=== PATIENT | female | born 1955 | race Caucasian/White ===

== ENCOUNTER → 2017-05-29 | Outpatient (CLI) | payer OTHER ==
[~2017-05-29] MED LIST: BENTYL20 MG PO; DILANTIN PO; FLEXERIL10 MG PO; HYDROCODON-ACE1 EAC7 PO; KEPPRA750 M1 PO; KEPPRA750 MG PO; LISINOPRIL10 MG PO; MIRALAX17 GM DOB; NAPROSYN500 MG PO; NEXIUM PO; ORUDIS75 M1 PO; PANTOPRAZOLE SO40 MG PO; PHENERGAN25 MG PO
--- NOTE | ~2017-05-29 | NM22 ---
[facility] A Service of [facility] & [facility] RADIOLOGY TEXT RESULTS PATIENT: ROBBY CORNEJO LOCATION: [facility] : 53 UNIT #: [id number] AGE: [address]: Thai Patel MD SEX: F ORDER DR: [id number] [facility] [address] [place], [place] [address] [id number] O MR#: [id number] Acc #: [id number] NAME: ROBBY CORNEJO : 1955 SEX: F STUDY DATE/TIME: 05/29/2017 11:01 UNIT: CGUS ROOM: STUDY DESCRIPTION: NM Hepatobiliary W GB Pharm Attending Physician: Thai Patel M.D. Referring Physician: Thai Patel M.D. Ordering Physician: Thai Patel M.D. Primary Care Physician: Timoteo Savage A.P.R.N. MEDICAL IMAGING REPORT This report is preliminary unless electronic signature is present EXAM HIDA scan with Kinevac/CCK 05/29/2017 HISTORY Right upper quadrant abdominal pain, right flank pain and right side back pain with bilateral groin pain and abdominal bloating with nausea after meals, symptoms for 3 weeks. FINDINGS The patient received an intravenous injection of 6 mCi of technetium 99m tagged Choletec for hepatobiliary imaging. One hour following the injection of the radiopharmaceutical, the patient received an intravenous injection of 1.5 mcg of Kinevac. There was homogeneous distribution of the radiotracer throughout the liver. Gallbladder activity was seen by 30 minutes post injection of the radiopharmaceutical. Following Kinevac injection, the gallbladder ejection fraction was 92.3% (normal is greater than 30%). IMPRESSION Normal HIDA scan with gallbladder ejection fraction of 92.3%. Dictated by... Michael Ramirez M.D. THIS IS AN ELECTRONICALLY VERIFIED REPORT Michael Ramirez M.D. at 05/29/2017 5:34 PM KRT/psc TD: 05/29/2017 17:15 JOB #: [id number] [facility] A Service of [facility] & [facility] RADIOLOGY TEXT RESULTS PATIENT: ROBBY CORNEJO LOCATION: [facility] #: [id number] : 53 UNIT #: [id number] AGE: [address]: Thai Patel MD SEX: F ORDER DR: MEDICAL IMAGING REPORT Page 1 of 1 COPY
--- NOTE | ~2017-05-29 | US6 ---
[facility] A Service of [facility] & [facility] RADIOLOGY TEXT RESULTS PATIENT: ROBBY CORNEJO LOCATION: [facility] : 53 UNIT #: [id number] AGE: [address]: Thai Patel MD SEX: F ORDER DR: [id number] [facility] [address]. [place], [place] [address] [id number] O MR#: [id number] Acc #: [id number] NAME: ROBBY CORNEJO : 1955 SEX: F STUDY DATE/TIME: 05/29/2017 10:29 UNIT: [facility] ROOM: STUDY DESCRIPTION: US Abdominal Limited Attending Physician: Thai Patel M.D. Referring Physician: Thai Patel M.D. Ordering Physician: Thai Patel M.D. Primary Care Physician: Timoteo Savage A.P.R.N. MEDICAL IMAGING REPORT This report is preliminary unless electronic signature is present EXAM Right upper quadrant ultrasound 05/29/2017. HISTORY Right upper quadrant abdominal pain, discomfort for 5 weeks and hypertension. FINDINGS Ultrasound examination of the gallbladder is negative. There is no cholelithiasis, gallbladder wall thickening, or bile duct dilatation. The visualized liver is negative. IMPRESSION Negative gallbladder ultrasound examination. Dictated by... Michael Ramirez M.D. THIS IS AN ELECTRONICALLY VERIFIED REPORT Michael Ramirez M.D. at 05/29/2017 5:34 PM KRT/gz TD: 05/29/2017 16:08 JOB #: [id number] MEDICAL IMAGING REPORT Page 1 of 1 COPY
[2017-05-29 10:23] LABS: HEMATOCRIT 46.2 % (35.0-45.0); HEMOGLOBIN 15.4 gm/dL (12.0-16.0); MEAN CELL VOLUME 89.5 FL (83-96); MEAN CORPUSCULAR HEMOGLOBIN 29.7 PG (28-34); MEAN CORPUSCULAR HGB CONC 33.2 g/dL (30-36); MEAN PLATELET VOLUME 6.9 FL (6.5-11.5); RED BLOOD COUNT 5.16 X10e (3.90-5.30); RED CELL DISTRIBUTION WIDTH 13.4 % (11.0-15.5); WHITE BLOOD COUNT 6.8 X10e3 (4.0-10.5)
[2017-05-29 10:49] LABS: ALBUMIN SERUM 4.2 g/dL (3.5-5.0); BILIRUBIN,TOTAL 1.1 mg/dL (0.2-2.0); CALCIUM SERUM 9.2 mg/dL (8.4-10.2); GLOM FILT RATE Estimated 59.9 mL/min (>60); POTASSIUM 4.5 mmol/L (3.5-5.1); PROTEIN TOTAL SERUM 7.2 g/dL (6.0-8.3)
== END | disposition home or self-care (01) ==
LOC: CGUS 09:44
PROVIDERS: Internal Medicine
DX: R10.11 Right upper quadrant pain (principal)
CPT/HCPCS: 36415; 76705; 78227; 80053; 85027; A9537; J2805